=== PATIENT | male | born 1985 | race Caucasian/White ===

== ENCOUNTER 2021-12-04 11:35 | Emergency (ER) | payer SELFPAY ==
[~2021-12-04] VITALS: Ht 170.2 cm; Wt 72.6 kg
--- NOTE | 2021-12-04 11:42 | NUR ---
Note mayokemi in EDM - 12/04/21 at 1154 by [email or web address] BIBS WITH HEAD LACERATION HIT BY A PLASTIC TOY, DENIES PAIN. VITALS ARE WITHIN NORMAL LIMTIS. BREATHING EVEN AND UNLABOERD. DR FELIX AT BEDSIDE head lac s/p hit by a plastic toy, denies pain happened 2 days ago
--- NOTE | 2021-12-04 11:42 | NUR ---
BIBS WITH HEAD LACERATION HIT BY A PLASTIC TOY, DENIES PAIN. VITALS ARE WITHIN NORMAL LIMTIS. BREATHING EVEN AND UNLABOERD. DR FELIX AT BEDSIDE
--- NOTE | 2021-12-04 11:45 | NUR ---
[facility] AFTERCARE INSTRUCTIONS WERE GIVEN. PT LEFT WITHOUT SIGNING PAPERWORK
[2021-12-04 11:55] VITALS: BP 121/78
== END 2021-12-04 11:56 | disposition home or self-care (01) ==
LOC: ER 11:39
DX: S01.01XA Laceration without foreign body of scalp, initial encounter (principal); W22.8XXA Striking against or struck by other objects, initial encounter; Y93.89 Activity, other specified; Y92.89 Other specified places as the place of occurrence of the external cause; Y99.8 Other external cause status